=== PATIENT | male | born 2000 ===

== ENCOUNTER 2021-09-16 07:17 | Emergency (ER) | payer OTHER ==
[2021-09-16 07:48] VITALS: BP 123/85
[2021-09-16] MEDS ORDERED: TETANUS,DIPH,PERTUSS(ACELL) VACCINE 0.5 ML SYRINGE IM ONE (10:18)
[2021-09-16] MEDS ORDERED: HYDROcodone/ACETAMINOPHEN 10-325MG TAB PO ONE (10:19)
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
== END 2021-09-16 15:55 | disposition home or self-care (01) ==
LOC: ED 07:17
DX: T22.211A Burn of second degree of right forearm, initial encounter (principal); T31.0 Burns involving less than 10% of body surface; X17.XXXA Contact with hot engines, machinery and tools, initial encounter; Y93.89 Activity, other specified; Y92.89 Other specified places as the place of occurrence of the external cause; Y99.0 Civilian activity done for income or pay
CPT/HCPCS: 90471; 90715; 99282; 99283